=== PATIENT | female | born 1965 | race Caucasian/White ===

== ENCOUNTER 2019-01-18 22:27 | Emergency (ER) | payer MEDICARE ==
[~2019-01-18] VITALS: Ht 167.6 cm; Wt 90.9 kg
[2019-01-19 00:08] VITALS: BP 132/82
== END 2019-01-19 00:05 | disposition home or self-care (01) ==
LOC: ED 22:27
DX: S52.121A Displaced fracture of head of right radius, initial encounter for closed fracture (principal); I10 Essential (primary) hypertension; F17.210 Nicotine dependence, cigarettes, uncomplicated; W01.0XXA Fall on same level from slipping, tripping and stumbling without subsequent striking against object, initial encounter; Y92.520 Airport as the place of occurrence of the external cause